=== PATIENT | male | born 1950 | race Two or more races ===

== ENCOUNTER 2017-09-14 15:57 | Outpatient (CLI) | payer OTHER | END 2017-09-14 16:20 | disposition home or self-care (01) | LOC: RAD 501 15:57 | DX: E04.2 Nontoxic multinodular goiter (principal) ==

== ENCOUNTER → 2017-09-29 | Day surgery (SDC) | payer OTHER ==
[~2017-09-29] MED LIST: ALTACE10 MG PO; AMBIEN10 MG PO; AZOPT10 ML OP; COMBIGAN EYE DRO5 ML OP; COREG CR10 MG PO; FIORINAL 50-321 EACH PO; LIPITOR20 MG PO; PERCOCET 5-3251 EACH PO
== END | disposition home or self-care (01) ==
LOC: ADM 09-23 09:45 → CIR.AMB 09-28 09:45
DX: C73 Malignant neoplasm of thyroid gland (principal)